=== PATIENT | female | born 1985 | race Native Hawaiian/Other Pacific Islander ===

== ENCOUNTER 2017-10-21 14:39 | Emergency (ER) | payer OTHER ==
--- NOTE | 2017-10-21 15:49 | ED PDOC ---
HPI: General Adult Time Seen by Provider: 10/21/17 15:48 Chief Complaint (Nursing): Dizziness/Lightheaded Chief Complaint (Provider): dizziness, urinary frequency History Per: Patient Additional Complaint(s): 32-year-old female presents to emergency department with intermittent dizziness that started yesterday. Patient states after working out yesterday she became dizzy but thinks this is because she did not eat before exercising. Today after eating lunch she felt dizzy again but it subsided after she drank some water. Patient also reports frequent urination with no dysuria or hematuria. Upon arrival patient denies any headache or dizziness and she also denies nausea or vomiting. Patient also states that she has felt her heart racing intermittently since yesterday and has also felt intermittent chills. PMD: in [facility] Past Medical History Reviewed: Historical Data, Nursing Documentation, Vital Signs Vital Signs: Last Vital Signs Temp 98.0 F 10/21/17 18:27 Pulse 64 10/21/17 18:27 Resp 16 10/21/17 18:27 BP 108/49 L 10/21/17 18:27 Pulse Ox 100 10/21/17 18:30 - Medical History Other PMH: PCOS - Surgical History Surgical History: No Surg Hx - Family History Family History: States: No Known Family Hx - Living Arrangements Living Arrangements: With Family - Social History Current smoker - smoking cessation education provided: No Alcohol: None Drugs: Denies - Allergies Allergies/Adverse Reactions: Allergies Allergy/AdvReac Type Severity Reaction Status Date / Time Sulfa (Sulfonamide Allergy RASH Verified 10/21/17 14:56 Antibiotics) Review of Systems ROS Statement: Except As Marked, All Systems Reviewed And Found Negative Constitutional: Positive for: Chills. Negative for: Fever, Weakness Cardiovascular: Negative for: Chest Pain Respiratory: Negative for: Cough Gastrointestinal: Negative for: Nausea, Vomiting, Abdominal Pain, Diarrhea Neurological: Positive for: Dizziness (intermittent since yesterday). Negative for: Weakness, Numbness, Incoordination, Change in Speech, Confusion, Seizures, Altered Mental Status, Headache Physical Exam - Reviewed Nursing Documentation Reviewed: Yes Vital Signs Reviewed: Yes - Physical Exam Appears: Positive for: Well, Non-toxic, No Acute Distress Skin: Positive for: Normal Color. Negative for: Pallor, Rash Eye Exam: Positive for: Normal appearance Cardiovascular/Chest: Positive for: Regular Rate, Rhythm Respiratory: Positive for: Normal Breath Sounds. Negative for: Wheezing, Respiratory Distress Gastrointestinal/Abdominal: Positive for: Soft. Negative for: Tenderness, Distended, Guarding, Rebound Back: Negative for: L CVA Tenderness, R CVA Tenderness Extremity: Positive for: Normal ROM Neurologic/Psych: Positive for: Alert, Oriented - Laboratory Results Result Diagrams: 10/21/17 17:05 10/21/17 17:05 Urine POC: Negative Urine dip results: Negative for: Leukocyte Esterase, Blood, Nitrate, Ketones, Glucose, Bilirubin, Protein - ECG O2 Sat by Pulse Oximetry: 100 Pulse Ox Interpretation: Normal Medical Decision Making Medical Decision Makin32 year old with intermittent dizziness Fingerstick: 113 Plan: test Urine dip CBC CMP Troponin EKG TSH IVF Patient reports feeling better after fluid bolus. Patient aware of all diagnostic testing results, all questions answered. Patient given copies of labs as she has follow-up with runner out next week. Patient aware she can return any time if acutely worse. Disposition - Clinical Impression Clinical Impression: Dizziness - Patient ED Disposition Is Patient to be Admitted: No Counseled Patient/Family Regarding: Studies Performed, Diagnosis, Need For Followup - Disposition Referrals: [facility] [Outside] Disposition: Routine/Home Disposition Time: 18:28 Condition: STABLE Additional Instructions: Drink plenty of fluids and rest as much as possible. Follow-up with primary doctor or return to emergency room any time if acutely worse. Instructions: Dizziness, Nonvertigo, (DC) Forms: [employer] ([place]riac) Results - Lab Results Lab Results: 10/21/17 10/21/17 10/21/17 17:30 17:05 17:05 WBC 11.0 H RBC 4.62 Hgb 12.9 Hct 38.4 MCV 83.0 MCH 28.0 MCHC 33.7 RDW 13.0 Plt Count 410 H MPV 7.9 Neut % (Auto) 67.5 Lymph % (Auto) 22.3 Page % (Auto) 7.8 Eos % (Auto) 1.6 Baso % (Auto) 0.8 Neut # (Auto) 7.4 H Lymph # (Auto) 2.5 Page # (Auto) 0.9 H Eos # (Auto) 0.2 Baso # (Auto) 0.1 Sodium 143 Potassium 4.5 Chloride 104 Carbon Dioxide 24 Anion Gap 20 BUN 7 Creatinine 0.6 L Est GFR ( Amer) > 60 Est GFR (Non-Af Amer) > 60 POC Glucose (mg/dL) Random Glucose 94 Calcium 9.8 Phosphorus 3.0 Magnesium 1.9 Total Bilirubin 0.7 AST 59 H ALT 49 Alkaline Phosphatase 54 Troponin I < 0.0120 Total Protein 8.5 H Albumin 4.7 Globulin 3.8 Albumin/Globulin Ratio 1.2 TSH 3rd Generation 3.06 Beta HCG, Quant < 2.39 10/21/17 15:51 WBC RBC Hgb Hct MCV MCH MCHC RDW Plt Count MPV Neut % (Auto) Lymph % (Auto) Page % (Auto) Eos % (Auto) Baso % (Auto) Neut # (Auto) Lymph # (Auto) Page # (Auto) Eos # (Auto) Baso # (Auto) Sodium Potassium Chloride Carbon Dioxide Anion Gap BUN Creatinine Est GFR ( Amer) Est GFR (Non-Af Amer) POC Glucose (mg/dL) 113 H Random Glucose Calcium Phosphorus Magnesium Total Bilirubin AST ALT Alkaline Phosphatase Troponin I Total Protein Albumin Globulin Albumin/Globulin Ratio TSH 3rd Generation Beta HCG, Quant
[2017-10-21] MEDS: Sodium Chloride 0.9% 1,000 ML IV STA (16:53)
[2017-10-21 17:21] LABS: BASO # 0.1 K/uL (0.0-0.2); BASO % 0.8 % (0.0-2.0); EOS # 0.2 K/uL (0.0-0.7); EOS % 1.6 % (0.0-4.0); HEMOGLOBIN 12.9 g/dL (12.0-16.0); LYMPH # 2.5 K/uL (1.0-4.3); LYMPH % 22.3 % (20.0-40.0); MEAN CORPUSCULAR HGB CONC 33.7 g/dL (33.0-37.0); MEAN PLATELET VOLUME 7.9 fl (7.2-11.7); MONO # 0.9 K/uL (0.0-0.8); MONO % 7.8 % (0.0-10.0); NEUT # 7.4 K/uL (1.8-7.0); NEUT % 67.5 % (50.0-75.0); NRBC % 0.1 % (0.0-0.0); RBC 4.62 Mil/uL (3.80-5.20)
[2017-10-21 17:37] LABS: ALB/GLOB RATIO 1.2 (1.0-2.1); ALBUMIN 4.7 g/dL (3.5-5.0); CALCIUM 9.8 mg/dL (8.4-10.2); GFR AFRICAN-AMERICAN > 60; GFR NON-AFRICAN AMERICAN > 60
[2017-10-21 17:53] LABS: ALT/SGPT 49 U/L (9-52); AST/SGOT 59 U/L (14-36); BLOOD UREA NITROGEN 7 mg/dl (7-17)
[2017-10-21 18:27] VITALS: BP 108/49; PULSE 64; RESP 16; TEMP 98
[2017-10-21 18:30] VITALS: O2SAT 100
== END 2017-10-21 19:03 | disposition home or self-care (01) ==
LOC: H.ER 14:39
DX: R42 Dizziness and giddiness (principal); E28.2 Polycystic ovarian syndrome
CPT/HCPCS: 80053; 81025; 82948; 83735; 84100; 84443; 84484; 84702; 85025; 99284; J7030